=== PATIENT | male | born 1970 | race Caucasian/White ===

== ENCOUNTER → 2021-05-11 | Outpatient (CLI) | payer OTHER ==
--- NOTE | 2021-05-11 12:18 | RAD ---
EXAM: Pelvis and left hip, 3 views. HISTORY: Pain. COMPARISON: None. FINDINGS: A frontal view the pelvis and 2 views of the left hip are obtained. There is right hip join t space narrowing with degenerative subchondral sclerosis, subchondral cyst formation and marginal sp urring. There is degenerative change involving the lower lumbar spine. IMPRESSION: 1. Moderate right hip osteoarthritis. 2. No acute osseous finding. Electronically signed by: Yoli Foote MD (05/11/2021 12:16 PM) [id number]
== END ==
LOC: RAD 11:30
PROVIDERS: ATTEND Specialist
DX: M16.12 Unilateral primary osteoarthritis, left hip (principal); M47.816 Spondylosis without myelopathy or radiculopathy, lumbar region; M85.60 Other cyst of bone, unspecified site; M25.852 Other specified joint disorders, left hip
CPT/HCPCS: 73502

== ENCOUNTER 2021-08-30 18:21 | Emergency (ER) | payer OTHER ==
[~2021-08-30] VITALS: Ht 177.8 cm; Wt 111.3 kg
[2021-08-30 18:29] VITALS: BP 157/93
--- NOTE | 2021-08-30 18:37 | PHYS DOC ---
Past History Past Surgical History: No Surgical History Alcohol Use: None Adult General Chief Complaint Chief Complaint: ABDOMINAL PAIN HPI HPI Patient is a 51-year-old male who presents to emergency department with a chief complaint of pain in his abdomen in between his epigastrium and umbilicus, 6 out of 10, sharp in nature has been going on since yesterday. States he had anything like this before. States he has had no nausea, vomiting or diarrhea but has had a decreased appetite because of this. States he did try to eat a little something and did not do anything for symptoms. Denies any recent travel, traumas, illnesses, fevers, chest pain, shortness of breath. Denies any dyspnea on exertion, orthopnea, PND or edema. States he is otherwise been eating and drinking normally. States he is making urine and stool normally for him. States he does not smoke, and has maybe 1 or 2 drinks a week and under any other drugs. Denies any dysuria or hematuria. Review of Systems Review of Systems Review of systems otherwise unremarkable except noted in HPI Allergies Allergies Allergies Coded Allergies Type Severity Reaction Last Updated Verified No Known Drug Allergies 08/30/21 No Physical Exam Physical Exam Constitutional: Well developed, well nourished, no acute distress, non-toxic appearance. [] HENT: Normocephalic, atraumatic, bilateral external ears normal, oropharynx moist, no oral exudates, nose normal. [] Eyes: PERRLA, EOMI, conjunctiva normal, no discharge. [] Neck: Normal range of motion, no tenderness, supple, no stridor. [] Cardiovascular:Heart rate regular rhythm, no murmur [] Lungs & Thorax: Bilateral breath sounds clear to auscultation [] Abdomen: soft, mild tenderness just superior to umbilicus with no rebound or guarding,, no masses, no pulsatile masses. [] Skin: Warm, dry, no erythema, no rash. [] Back: No tenderness, no CVA tenderness. [] Extremities: No tenderness, no cyanosis, no clubbing, ROM intact, no edema. [] Neurologic: Alert and oriented X 3, normal motor function, normal sensory function, no focal deficits noted. [] Psychologic: Affect normal, judgement normal, mood normal. [] Current Patient Data Vital Signs Vital Signs Date Time Temp Pulse Resp B/P (MAP) Pulse Ox O2 Delivery O2 Flow Rate FiO2 3/15/22 18:29 98.4 96 16 157/93 (114) 95 Room Air EKG EKG [] Radiology/Procedures Radiology/Procedures [] Heart Score C/O Chest Pain: No Risk Factors: Risk Factors: DM, Current or recent (<one month) smoker, HTN, HLP, family history of CAD, obesity. Risk Scores: Risk Factors: DM, Current or recent (<one month) smoker, HTN, HLP, family history of CAD, obesity. Course & Med Decision Making Course & Med Decision Making Patient is a 51-year-old male who presents with a chief complaint of abdominal pain Vital signs notable for hypertension. Physical exam noted above. EKG with a rate of 77, QRS of 90, QTc of 4 9, no STEMI. Chest x-ray not concerning. Treatment with GI cocktail and Zofran resolve symptoms Laboratory analysis not concerning. Discussed symptom treatment at home and advised adding something for GERD over the next few days until he calls his primary care physician update and set up a follow-up appointment. Gave return precautions to the ED. Patient grateful, verbalized understanding agree with plan of discharge. Dragon Disclaimer Dragon Disclaimer This electronic medical record was generated, in whole or in part, using a voice recognition dictation system. Departure Departure: Impression: Primary Impression: Abdominal pain Disposition: HOME / SELF CARE / HOMELESS Condition: STABLE Referrals: AZAR BERMUDEZ MD (PCP) Patient Instructions: Abdominal Pain (Nonspecific) Additional Instructions: Thank you for coming into the emergency department tonight and allowing us to take care of you. Please read the attached information carefully to go over things we discussed. Over the next several days, please eat an appropriate diet as we discussed, cutting back on greasy foods, fatty foods, spicy foods. You can have coffee but try to have some food on your stomach. Please begin an [id number] omeprazole once daily for heartburn/GERD and begin taking 2 Tums with meals daily. Please follow-up in the morning with your primary care physician update on your ED visit and set up a follow-up. Please come back with new or concerning symptoms as discussed. EDNA DELEON MD Aug 30, 2021 18:37
[2021-08-30] MEDS ORDERED: ACETAMINOPHEN 500 MG TABLET PO ONE (18:45)
[2021-08-30] MEDS ORDERED: IBUPROFEN 600 MG TABLET. PO ONE (18:45)
[2021-08-30] MEDS ORDERED: LIDO:MAALOX 1:1 20 ML SINGLE DOSE. PO ONE (19:00)
[2021-08-30] MEDS ORDERED: ONDANSETRON PF 4 MG/2 ML VIAL. IVP ONE (19:00)
[2021-08-30 19:54] LABS: BASO # 0.1 x10^3/uL (0.0-0.2); BASO % 1 % (0-3); EOS # 0.1 x10^3/uL (0.0-0.7); EOS % 1 % (0-3); HEMATOCRIT 45.6 % (39.0-53.0); HEMOGLOBIN 15.6 g/dL (13.0-17.5); LYMPH # 1.3 x10^3/uL (1.0-4.8); LYMPH % 18 % (24-48); MEAN CORPUSCULAR HEMOGLOBIN 32 pg (25-35); MEAN CORPUSCULAR HGB CONC 34 g/dL (31-37); MEAN CORPUSCULAR VOLUME 94 fL (79-100); MONO # 0.8 x10^3/uL (0.0-1.1); MONO % 11 % (0-9); NEUT # 5.1 x10^3uL (1.8-7.7); NEUT % 70 % (31-73); PLATELET COUNT 189 x10^3/uL (140-400); RED BLOOD COUNT 4.88 x10^6/uL (4.30-5.70); RED CELL DISTRIBUTION WIDTH 13.2 % (11.5-14.5); WHITE BLOOD COUNT 7.3 x10^3/uL (4.0-11.0)
[2021-08-30 20:02] LABS: CALCIUM 8.4 mg/dL (8.5-10.1); CREATININE 0.8 mg/dL (0.7-1.3); GFR 101.5; POTASSIUM 3.9 mmol/L (3.5-5.1)
[2021-08-30 20:08] LABS: ALBUMIN 3.4 g/dL (3.4-5.0); ALBUMIN/GLOBULIN RATIO 1.2 (1.0-1.7); TOTAL BILIRUBIN 0.4 mg/dL (0.2-1.0); TOTAL PROTEIN 6.3 g/dL (6.4-8.2)
--- NOTE | 2021-08-30 20:19 | RAD ---
EXAMINATION: XR CHEST 1V CLINICAL HISTORY: Chest pain. Cardiac workup. EXAM DATE/TIME: 08/30/2021 7:03 PM COMPARISON: None FINDINGS: Lines, Tubes, and Devices: None. Cardiomediastinal Silhouette: Within normal limits. Lungs and Pleura: No evidence of focal airspace consolidation or pleural effusion. Pulmonary vasculat ure unremarkable. Bones and Soft Tissues: Degenerative changes in the thoracic spine. IMPRESSION: No evidence of acute cardiopulmonary abnormality. Electronically signed by: Sin Phillips DO (08/30/2021 8:16 PM) JORGE
--- NOTE | 2021-08-30 21:45 | EKG ---
[address] [address] Test Date: 2021-08-30 Test Time: 19:21:23 Pat Name: ORALIA RIOJAS Department: Room: Gender: M [employer] Supervisor: LINDA : 1970 Requested By: EDNA DELEON Order Number: [id number] Reading MD: Measurements Intervals [place] Rate: 77 P: 43 VA: 182 QRS: 65 QRSD: 90 T: 35 QT: 360 QTc: 409 Interpretive Statements SINUS RHYTHM NO SPECIFIC ECG ABNORMALITIES RI6.01 No previous ECG available for comparison
== END 2021-08-30 20:32 | disposition home or self-care (01) ==
LOC: ER 18:21
DX: R10.13 Epigastric pain (principal); R10.33 Periumbilical pain
CPT/HCPCS: 36415; 71045; 80053; 83690; 84484; 85025; 93005; 96374; 99284; J2405

== ENCOUNTER → 2021-09-07 | Outpatient (CLI) | payer OTHER ==
[2021-08-30 18:29] VITALS: BP 157/93
--- NOTE | 2021-09-07 10:18 | RAD ---
INDICATION: Reason: RUQ PAIN / Spl. Instructions: / History: COMPARISON: None. TECHNIQUE: Grayscale and color ultrasound images obtained through the abdomen. FINDINGS: Pancreas: Not well seen secondary to overlying bowel gas. Liver: Echogenic parenchyma. Partially seen secondary to overlying structures obscuring. Gallbladder: No definite stones or wall thickening. Common Bile Duct: Not dilated. Right Kidney: No hydronephrosis. Aorta/IVC: Limited by bowel gas. Flow at partially seen inferior vena cava at level of liver. IMPRESSION: * No definite gallstones or common bile duct dilation. * Liver is borderline echogenic. Nonspecific but can be seen with fatty infiltration. Electronically signed by: Mk Lanza MD (09/07/2021 10:16 AM) [id number]
== END ==
LOC: US 07:55
PROVIDERS: ATTEND Specialist
DX: R10.84 Generalized abdominal pain (principal)
CPT/HCPCS: 76705